=== PATIENT | female | born 1985 ===

== ENCOUNTER 2019-01-03 10:20 | Emergency (ER) | payer OTHER ==
[2019-01-03 10:34] VITALS: BMI 32.8
[2019-01-03 10:37] VITALS: TEMP 99; O2SAT 98
--- NOTE | 2019-01-03 11:12 | ED PDOC ---
Arrival/HPI <Mateo Saxena - Last Filed: 01/03/19 12:11> - General Historian: Patient - History of Present Illness Narrative History of Present Illness (Text): 01/03/19 11:08 CC: sore throat HPI: 33 yo female w/ no PMH comes to ED for evaluation of sore throat. Patient states the symptoms started about two days ago which she initially attributed to her seasonal allergies. However, yesterday patient noted that she felt hot but did not check her temperature. She decided to come today because her symptoms had involved to include sore throat, cough w/ sputum production, ear muriel and feeling tired. Denies flu shot. Admits to sick contacts at work who were exper iencing similar symptoms. Patient states she took an Stacy [place] at home which offered minimal relief. LMP was one week ago. Denies sob, cp, n/v, constipation or diarrhea, dysuria, lightheadedness, and dizziness. Time/Duration: < week Symptom Onset: Gradual Symptom Course: Worsening Activities at Onset: Rest Context: Work <Rosemary Mckeon - Last Filed: 01/03/19 13:38> - General Chief Complaint: ENT Problem Time Seen by Provider: 01/03/19 10:38 Past Medical History - Provider Review Nursing Documentation Reviewed: Yes - Cardiac Hx Cardiac Disorders: No - Pulmonary Hx Respiratory Disorders: No - Neurological Hx Neurological Disorder: No - HEENT Hx HEENT Disorder: No - Renal Hx Renal Disorder: No - Endocrine/Metabolic Hx Endocrine Disorders: No - Hematological/Oncological Hx Blood Disorders: No - Integumentary Hx Dermatological Disorder: No - Musculoskeletal/Rheumatological Hx Musculoskeletal Disorders: No - Gastrointestinal Hx Gastrointestinal Disorders: No - Genitourinary/Gynecological Hx Genitourinary Disorders: No - Psychiatric Hx Psychophysiologic Disorder: No Hx Substance Use: No <Rosemary Mckeon - Last Filed: 01/03/19 13:38> Family/Social History Family/Social History: No Known Family HX Smoking Status: Never Smoked Hx Alcohol Use: Yes Frequency of alcohol use: Socially Hx Substance Use: No <Rosemary Mckeon - Last Filed: 01/03/19 13:38> Allergies/Home Meds <Mateo Saxena - Last Filed: 01/03/19 12:11> <Rosemary Mckeon - Last Filed: 01/03/19 13:38> Allergies/Adverse Reactions: Allergies No Known Allergies Allergy (Verified 01/03/19 10:35) Home Medications: Home Meds Medication Instructions Recorded Confirmed No Known Home Med 01/03/19 01/03/19 Review of Systems - Review of Systems Constitutional: Normal. absent: Fatigue, Weight Change, Fevers Eyes: Normal. absent: Vision Changes, Photophobia ENT: Sore Throat, Other (ear pain). absent: Normal, Hearing Changes, Rhinorrhea Respiratory: Cough, Sputum. absent: Normal, SOB Cardiovascular: Normal. absent: Chest Pain, Palpitations, Edema, Syncope Gastrointestinal: Normal. absent: Abdominal Pain, Stool Changes, Constipation Genitourinary Female: Normal. absent: Dysuria, Frequency, Hematuria Musculoskeletal: Normal. absent: Arthralgias, Back Pain, Neck Pain Skin: Normal. absent: Rash, Pruritis, Skin Lesions Neurological: Normal. absent: Headache, Dizziness, Focal Weakness Endocrine: Normal. absent: Diaphoresis, Polyuria, Polydipsia Hemo/Lymphatic: Normal. absent: Adenopathy, Easy Bleeding, Easy Bruising Psychiatric: Normal. absent: Anxiety, Depression <Rosemary Mckeon - Last Filed: 01/03/19 13:38> Physical Exam Vital Signs Temp Pulse Resp BP Pulse Ox 01/03/19 10:35 99.0 F 83 20 121/80 98 <Mateo Saxena - Last Filed: 01/03/19 12:11> Vital Signs Reviewed: Yes Vital Signs Temp Pulse Resp BP Pulse Ox 01/03/19 10:35 99.0 F 83 20 121/80 98 Temperature: Afebrile Blood Pressure: Normal Pulse: Regular Respiratory Rate: Normal Appearance: Positive for: Well-Appearing, Non-Toxic, Comfortable Pain Distress: None Mental Status: Positive for: Alert and Oriented X 3 - Systems Exam Head: Present: Atraumatic, Normocephalic. No: Tenderness, Ecchymosis Pupils: Present: PERRL Extroacular Muscles: Present: EOMI Conjunctiva: Present: Normal Ears: Present: Normal. No: Erythema Mouth: Present: Moist Mucous Membranes Respiratory/Chest: Present: Clear to Auscultation, Good Air Exchange. No: Respiratory Distress, Accessory Muscle Use Cardiovascular: Present: Regular Rate and Rhythm, Normal S1, S2. No: Murmurs Abdomen: Present: Normal Bowel Sounds. No: Tenderness, Distention, Peritoneal Signs Upper Extremity: Present: Normal Inspection. No: Cyanosis, Edema Lower Extremity: Present: Normal Inspection. No: Edema, CALF TENDERNESS Neurological: Present: GCS=15, CN II-XII Intact, Speech Normal Skin: Present: Warm, Dry, Normal Color. No: Rashes Psychiatric: Present: Alert, Oriented x 3, Normal Insight, Normal Concentration <Rosemary Mckeon - Last Filed: 01/03/19 13:38> Medical Decision Making ED Course and Treatment: Patient Seen with Resident: In agreement with resident note which contains more details about the patient. Patient seen and evaluated with resident. Came up with plan and treatment together. 33 year old female presents complaining of sore throat, cough with sputum production, and ear pain that began 2 days ago. Plan: -- Labs -- Chest X-ray --- Throat Culture -- Influenza A B, Rapid Strep -- Reassess/dispo - Lab Interpretations Lab Results: Total Bilirubin 0.7 mg/dL (0.2-1.3) 01/03/19 11:20 AST 24 U/L (14-36) 01/03/19 11:20 ALT 20 U/L (7-56) 01/03/19 11:20 Alkaline Phosphatase 69 U/L (38-126) 01/03/19 11:20 Total Protein 7.8 g/dL (5.8-8.3) 01/03/19 11:20 Albumin 4.1 g/dL (3.0-4.8) 01/03/19 11:20 Globulin 3.6 gm/dL 01/03/19 11:20 Albumin/Globulin Ratio 1.1 (1.1-1.8) 01/03/19 11:20 - RAD Interpretation Radiology Orders: 01/03/19 11:43 CXR (PA/LAT) [CHEST TWO VIEWS (PA/LAT)] [RAD] Stat <Mateo Saxena - Last Filed: 01/03/19 12:11> ED Course and Treatment: 01/03/19 11:19 Impression 33 yo female w/ no PMH comes to ED for evaluation of sore throat. Plan -CBC -CMP -Rapid Flu -Rapid Strep Throat -CXR Prior Visits No prior visits prior Progress Notes pending rapid flu and strep studies pending lab work and imaging 01/03/19 13:32 imaging and lab work reviewed and everything WNL Re-evaluation Time: 13:33 Reassessment Condition: Re-examined, Unchanged - Lab Interpretations I have reviewed the lab results: Yes Interpretation: All labs normal - RAD Interpretation Radiology Orders: 01/03/19 10:56 CHEST PORTABLE [RAD] Stat <Rosemary Mckeon - Last Filed: 01/03/19 13:38> - PA / DAYCARE ASSISTANT / Resident Statement / has reviewed & agrees with the documentation as recorded. / has examined the patient and agrees with the treatment plan. - Scribe Statement The provider has reviewed the documentation as recorded by the Carenibe Greg Ortega Provider Scribe Attestation: All medical record entries made by the Scribe were at my direction and personally dictated by me. I have reviewed the chart and agree that the record accurately reflects my personal performance of the history, physical exam, medical decision making, and the department course for this patient. I have also personally directed, reviewed, and agree with the discharge instructions and disposition. <Mateo Saxena - Last Filed: 01/03/19 12:11> Disposition/Present on Arrival <Mateo Saxena - Last Filed: 01/03/19 12:11> - Present on Arrival Any Indicators Present on Arrival: No History of DVT/PE: No History of Uncontrolled Diabetes: No Urinary Catheter: No History of Decub. Ulcer: No History Surgical Site Infection Following: None - Disposition Have Diagnosis and Disposition been Completed?: Yes Disposition Time: 13:32 Patient Plan: Discharge <Rosemary Mckeon - Last Filed: 01/03/19 13:38> - Disposition Diagnosis: Viral pharyngitis Disposition: HOME/ ROUTINE Condition: FAIR Discharge Instructions (ExitCare): Viral Pharyngitis Additional Instructions: 1. Please alternate between Tylenol and Motrin for pain control 2. Can you use Chlorasetpic spray as well for sore throat Referrals: FAMILY PROVIDER,NO [Primary Care Provider] - Follow up with primary Forms: [email or web address] (German)
[2019-01-03 11:43] LABS: ALB/GLOB RATIO 1.1 (1.1-1.8); ALBUMIN 4.1 g/dL (3.0-4.8); ALT/SGPT 20 U/L (7-56); AST/SGOT 24 U/L (14-36); BLOOD UREA NITROGEN 5 mg/dL (7-21); CALCIUM 8.7 mg/dL (8.4-10.5); GFR NON-AFRICAN AMERICAN > 60
[2019-01-03 11:46] LABS: INFLUENZA A B NEGATIVE FOR FLU A/B (NEGATIVE)
[2019-01-03 11:56] LABS: BASO # 0.02 K/mm3 (0.0-2.0); BASO % 0.2 % (0.0-3.0); EOS # 0.3 (0.0-0.7); EOS % 3.1 % (1.5-5.0); HEMOGLOBIN 11.7 g/dL (12.0-16.0); LYMPH # 1.9 (1.2-3.4); LYMPH % 19.1 % (22.0-35.0); MEAN CORPUSCULAR HEMOGLOBIN 27.8 pg (25.0-35.0); MEAN CORPUSCULAR HGB CONC 32.3 g/dl (31.0-37.0); MEAN PLATELET VOLUME 10.7 fl (7.0-11.0); MONO # 0.6 (0.1-0.6); MONO % 5.7 % (1.0-6.0); RBC 4.21 10^6/uL (3.5-6.1); RED CELL DISTRIBUTION WIDTH 14.9 % (11.5-14.5); WHITE BLOOD COUNT 9.8 10^3/uL (4.5-11.0)
--- NOTE | 2019-01-03 13:41 | RAD ---
Date of service: 01/03/2019 HISTORY: Cough COMPARISON: No prior. TECHNIQUE: Chest PA and lateral views FINDINGS: LUNGS: No active pulmonary disease. PLEURA: No significant pleural effusion identified. No pneumothorax apparent. CARDIOVASCULAR: No aortic atherosclerotic calcification present. Normal cardiac size. No pulmonary vascular congestion. OSSEOUS STRUCTURES: No significant abnormalities. VISUALIZED UPPER ABDOMEN: Normal. OTHER FINDINGS: None. IMPRESSION: No active disease.
[2019-01-03 13:47] VITALS: BP 121/64; PULSE 79; RESP 18
== END 2019-01-03 13:49 | disposition home or self-care (01) ==
LOC: ED 10:20
DX: J02.9 Acute pharyngitis, unspecified (principal)